=== PATIENT | female | born 1930 | race Caucasian/White ===

== ENCOUNTER 2017-02-05 21:59 | Emergency (ER) | payer OTHER ==
[~2017-02-05] VITALS: Ht 152.4 cm; Wt 74.8 kg
[~2017-02-05 21:59] MED LIST: ACYCLOVIR800 MG PO; ASPIRIN81 M1 PO; CIPRO250 MG PO; COMBIVENT1 ARO IH; CORGARD20 MG PO; DYAZIDE 25 MG-31 CAP PO; EYE VITAMIN; IMDUR ER30 MG PO; MECLIZINE HCL25 M1 PO; MECLIZINE12.5 MG PO; MELOXICAM15 MG PO; METRONIDAZOLE500 M1 PO; NITRO TRANS0.2 MG/HR TD; PREDNISONE20 MG PO; PROAIR HFA8.5 GM INH; SENNA DOCUSATE1 TAB PO; TORADOL10 MG PO; TRAMADOL HCL50 MG PO; TRANSDERM-NITR0.1 MG; TRANSDERM-NITR0.2 MG PO; ULTRAM50 MG PO; VICODIN 500 MG-1 TAB PO; ZANTAC150 MG PO
[2017-02-05 22:21] VITALS: BP 137/78
[2017-02-05 22:48] LABS: BASO % 0.2 % (0.0-1.0); EOS # 0.1 10*3/uL (0.0-0.4); EOS % 1.2 % (1.0-4.0); HEMATOCRIT 45.2 % (37.0-47.0); LYMPH # 1.2 10*3/uL (1.3-4.4); LYMPH % 19.9 % (27.0-41.0); MEAN CELL VOLUME 90.9 fl (81.0-99.0); MEAN CORPUSCULAR HGB 30.2 pg (27.0-31.0); MEAN CORPUSCULAR HGB CONC 33.2 g/dl (33.0-37.0); MEAN PLATELET VOLUME 9.6 fl (9.6-12.3); MONO # 0.5 10*3/uL (0.1-1.0); MONO % 8.9 % (3.0-9.0); NEUT # 4.1 10*3/uL (2.3-7.9); NEUT % 69.6 % (47.0-73.0); PLATELET COUNT AUTOMATED 214 10*3/uL (130-400); RED BLOOD COUNT 4.97 10*6/uL (4.10-5.10); RED CELL DISTRI WIDTH 13.9 % (0-14.5); WHITE BLOOD COUNT 5.9 10*3/uL (4.8-10.8)
[2017-02-05 22:53] LABS: BILIRUBIN NEGATIVE (NEGATIVE); BLOOD NEGATIVE (NEGATIVE); CLARITY CLEAR (CLEAR); COLOR YELLOW (YELLOW); GLUCOSE NEGATIVE (NEGATIVE); KETONE TRACE (NEGATIVE); LEUKO ESTERASE 1+ (NEGATIVE); NITRITE NEGATIVE (NEGATIVE); PH 5.5 (5.0-9.0); PROTEIN NEGATIVE (NEGATIVE); UROBILINOGEN 0.2 E.U./dl (0.2-1.0)
[2017-02-05 23:05] LABS: ALBUMIN 3.5 gm/dl (3.1-4.5); BILIRUBIN, TOTAL 0.3 mg/dl (0.2-1.0); POTASSIUM 3.7 mmol/L (3.5-5.1); TOTAL PROTEIN 7.2 gm/dL (6.4-8.2)
[2017-02-05 23:06] LABS: BACTERIA TRACE
[2017-02-05 23:07] LABS: URINE REFLEX COMMENT YES (NO)
[2017-02-06] MEDS ORDERED: Zofran4 MG PO (00:53)
[2017-02-06] MEDS ORDERED: KEFLEX500 M1 PO (00:53)
== END 2017-02-06 01:24 | disposition home or self-care (01) ==
LOC: ED 21:59
PROVIDERS: Emergency Medicine
DX: N39.0 Urinary tract infection, site not specified (principal); R19.7 Diarrhea, unspecified; F17.200 Nicotine dependence, unspecified, uncomplicated; Z88.8 Allergy status to other drugs, medicaments and biological substances; Z88.6 Allergy status to analgesic agent; Z79.82 Long term (current) use of aspirin; Z79.899 Other long term (current) drug therapy

== ENCOUNTER → 2017-07-14 | Outpatient (CLI) | payer OTHER ==
[~2017-07-14] MED LIST changes: +KEFLEX500 M1 PO; +Zofran4 MG PO
== END | disposition home or self-care (01) ==
LOC: MAMMO 16:34
DX: Z12.31 Encounter for screening mammogram for malignant neoplasm of breast (principal)

== ENCOUNTER → 2018-09-17 | Outpatient (CLI) | payer OTHER ==
[~2018-09-17] MED LIST changes: +AMINOPHYLLIN200 MG PO; +B-12500 MC1 PO; +FUROSEMIDE20 M1 PO; +LASIX10 MG/ML PO; +OCUVITE LUTEIN1 EAC1 PO; +VITAMIN D5000 UNI1 PO
== END | disposition home or self-care (01) ==
LOC: RESCLI 13:21
DX: I13.0 Hypertensive heart and chronic kidney disease with heart failure and stage 1 through stage 4 chronic kidney disease, or unspecified chronic kidney disease (principal); N18.3 Chronic kidney disease, stage 3 (moderate); I50.32 Chronic diastolic (congestive) heart failure; N39.0 Urinary tract infection, site not specified; J45.909 Unspecified asthma, uncomplicated; R73.03 Prediabetes; E55.9 Vitamin D deficiency, unspecified; J32.9 Chronic sinusitis, unspecified; K59.00 Constipation, unspecified; E53.8 Deficiency of other specified B group vitamins; Z79.899 Other long term (current) drug therapy; Z79.82 Long term (current) use of aspirin; Z88.6 Allergy status to analgesic agent; Z88.1 Allergy status to other antibiotic agents; Z88.5 Allergy status to narcotic agent

== ENCOUNTER → 2018-10-21 | Outpatient (CLI) | payer OTHER ==
--- NOTE | ~2018-10-21 | EKG ---
[place], [place] ELECTROCARDIOGRAM REPORT NAME: JENNIFER OVALLES UNIT #: [id number] ROOM: DOCTOR: EPIPHANY DRAFT REPORT BIRTHDATE: [birth year] [facility] Test Date: 2018-10-21 Test Time: 12:37:25 Pat Name: JENNIFER OVALLES Department: Room: Gender: F Dictating Transcribing Machine Servicer: Lisa Pavon : 1930 Requested By: QUITA CERVANTES Order Number: [id number] Reading MD: Pancho Sequeira MD Measurements Intervals [place] Rate: 62 P: 86 WV: 216 QRS: -22 QRSD: 100 T: 30 QT: 431 QTc: 438 Interpretive Statements Sinus rhythm Borderline prolonged [place] interval Borderline left axis deviation Anteroseptal infarct, old Compared to ECG 07/14/2018 23:56:25 No significant changes Electronically Signed On 10-21-2018 10:32:27 PST by Pancho Sequeira MD CM:EKGRPT:ELECTROCARDIOGRAM REPORT [id number] QUITA HORNE DRAFT REPORT QUITA CERVANTES MD
== END | disposition home or self-care (01) ==
LOC: RESCLI 03:10
DX: I11.0 Hypertensive heart disease with heart failure (principal); I50.32 Chronic diastolic (congestive) heart failure; K59.00 Constipation, unspecified; E53.8 Deficiency of other specified B group vitamins; R05 Cough; R07.89 Other chest pain; Z79.82 Long term (current) use of aspirin; Z79.899 Other long term (current) drug therapy; Z88.8 Allergy status to other drugs, medicaments and biological substances; Z90.49 Acquired absence of other specified parts of digestive tract

== ENCOUNTER → 2018-11-11 | Outpatient (CLI) | payer OTHER ==
[~2018-11-11] MED LIST changes: +PERCOCET 5-3251 EACH PO; +XARE20MG PO; +XARELTO1 EACH PO; +ZTLIDO1 EACH T
== END | disposition home or self-care (01) ==
LOC: CARD 15:00
DX: I50.33 Acute on chronic diastolic (congestive) heart failure (principal)